=== PATIENT | male | born 1990 | race Caucasian/White ===

== ENCOUNTER 2023-06-18 12:51 | Outpatient (CLI) | payer OTHER ==
--- NOTE | 2023-06-19 14:57 | MRI Report ---
PROCEDURE: ELBOW WO - RT INDICATIONS: RIGHT ELBOW PAIN TECHNIQUE: Noncontrast coronal proton density fast spin echo and T2 fast spin echo with fat saturation, axial an d sagittal T1 spin echo and T2 fast spin echo with fat saturation through the elbow. COMPARISON: None. FINDINGS: Image quality: Excellent. Lateral structures: The lateral ulnar collateral ligament and radial collateral ligament both appear intact. The overlying common extensor tendon also appears intact. Medial structures: The ulnar collateral ligament appears thickened at its medial epicondylar inserti on. The overlying common flexor tendon also appears thickened with intrasubstance T2 hyperintense si gnal at its medial epicondylar insertion. The ulnar nerve appears normal in size and signal within th e cubital tunnel. Anterior structures: The biceps and brachialis tendons both appear intact as they insert onto the pr oximal radius and ulna, respectively. No bicipitoradial bursal fluid. The median and radial neurova scular bundles appear normal; no focal muscle atrophy to suggest nerve impingement. Posterior structures: The triceps tendon appears thickened with surrounding edema and intrasubstance T2 hyperintense signal at its proximal olecranon insertion. No significant olecranon bursal fluid. Bone and cartilage: No bone marrow contusions or fractures. No osteochondral injuries. IMPRESSION: 1. Suggestion of mild medial epicondylitis with tendinosis/low-grade partial thickness tear involving common flexor tendon origin and low-grade sprain involving proximal ulnar collateral ligament at its medial epicondylar insertion. 2. Tendinosis and low-grade partial-thickness tear involving distal triceps tendon at its proximal ol ecranon insertion. 3. No marrow edema. No fracture or dislocation. No gross osteochondral injuries. Reviewed by: Reyes Hinojosa MD on 06/19/2023 2:55 PM PDT Approved by: Reyes Hinojosa MD on 06/19/2023 2:55 PM PDT Station ID: [id number]
--- NOTE | 2023-06-20 11:09 | MRI Report ---
PROCEDURE: SHOULDER WO - LT INDICATIONS: LEFT SHOULDER PAIN TECHNIQUE: Noncontrast oblique coronal T2 fast spin echo with fat saturation, oblique sagittal T1 spin echo and T2 fast spin echo with fat saturation, axial T1 spin echo and T2 fast spin echo with fat saturation t hrough the shoulder. COMPARISON: None. FINDINGS: Image quality: Excellent. Rotator cuff: There is intermediate grade partial-thickness tear of the distal supraspinatus tendon i nvolving the bursal surface and footprint. There is mild Infraspinatus and subscapularis tendinosis w ithout tendon tear. No rotator cuff muscle atrophy on sagittal images. Bones and bursae: No bone marrow contusions or fractures. Mild acromioclavicular joint degeneration. The acromion demonstrates conventional anatomy, without an os acromiale. No pathologic subacromial /subdeltoid bursal fluid is present. Capsule and soft tissues: In the absence of intra-articular contrast, the labrum and glenohumeral li gaments appear intact. The long head of the biceps tendon demonstrates normal location and morpholog y. The rotator interval appears irregular with fibrosis. The coracohumeral ligament is thickened. IMPRESSION: 1. Intermediate-grade partial-thickness tear of the distal supraspinatus tendon. 2. Mild infraspinous and subscapularis tendinosis. 3. Mild acromioclavicular arthrosis. 4. Irregular rotator interval with fibrosis. The coracohumeral ligament is thickened. The findings ar e associated with adhesive capsulitis. Recommend clinical correlation. Reviewed by: Cynthia Brunner MD on 06/20/2023 11:07 AM PDT Approved by: Cynthia Brunner MD on 06/20/2023 11:07 AM PDT Station ID: [id number]
== END 2023-06-18 12:52 | disposition home or self-care (01) ==
LOC: DI 12:51
DX: M75.112 Incomplete rotator cuff tear or rupture of left shoulder, not specified as traumatic (principal); M19.012 Primary osteoarthritis, left shoulder; M75.92 Shoulder lesion, unspecified, left shoulder; M77.01 Medial epicondylitis, right elbow; S46.311A Strain of muscle, fascia and tendon of triceps, right arm, initial encounter